=== PATIENT | female | born 1960 | race Caucasian/White ===

== ENCOUNTER 2023-06-20 09:38 | Outpatient (CLI) | payer OTHER, SELFPAY ==
--- NOTE | 2023-06-20 09:49 | ECG_ITS ---
Measurements Intervals [place] Rate: 72 P: 61 DC: 130 QRS: 33 QRSD: 101 T: 58 QT: 400 QTc: 440 Interpretive Statements SINUS RHYTHM DELAYED PRECORDIAL R/S TRANSITION BASELINE ARTIFACT- I, II, III, AVR, AVL, AVF, V1 BORDERLINE ECG NO PREVIOUS ECG AVAILABLE FOR COMPARISON Electronically Signed On 06-20-2023 10:18:18 FLAMER AFTER LASTING by Miguelito Lenz D.O.
[2023-06-20 10:26] LABS: Hematocrit 40.8 % (37.0-47.0); Hemoglobin 13.3 g/dL (12.0-15.0)
== END 2023-06-20 09:39 | disposition home or self-care (01) ==
LOC: ANHSURGERY 09:44
PROVIDERS: Anesthesiology; Visit Provider Surgery Plastic and Reconstructive Surgery
DX: Z01.818 Encounter for other preprocedural examination (principal); I10 Essential (primary) hypertension; R93.1 Abnormal findings on diagnostic imaging of heart and coronary circulation; Z41.1 Encounter for cosmetic surgery
CPT/HCPCS: 36415; 85014; 85018; 93005

== ENCOUNTER 2023-06-27 00:02 | Day surgery (SDC) | payer OTHER, SELFPAY ==
[2023-06-19 12:51] VITALS: BMI 30.7
--- NOTE | 2023-06-19 13:02 | PC.NURSE ---
Report to the Outpatient Waiting Room, entrance under the green pavilion located off [facility], at time 7:00 on date 06/27/23. Planned Procedure Time: 9:00. Time changes happen often and if your time is changed the preop area will call you the afternoon before. - You and your visitor will be asked to self-screen and do not enter if you have any COVID symptoms. - A mask is optional within the hospital at this time. Patients may have clear liquids (water, carbonated beverages, clear teas, apple juice) until 3 hours prior to surgery (6:00) with a maximum of 20 ounces. - No food from midnight until time of surgery Take the following medications with a SIP of water the morning of surgery: AMLODIPINE, CITALOPRAM, LEVOTHYROXINE DO NOT STOP ANY OF YOUR OTHER PRESCRIPTION MEDICATIONS PRIOR TO SURGERY ?EXCEPT THE FOLLOWING Medications to discontinue per physician: ASPIRIN Date to take last dose: HAS ALREADY STOPPED PT ENCOURAGED TO CALL DR. RIZVI'S OFFICE FOR INSTRUCTIONS REGARDING HYDROXYCHLOROQUINE Please no make-up, nail kyrgyz, hairspray, perfume, deodorant, or body powder the day of surgery. No jewelry (including any body piercings) or valuables the day of surgery, leave them at home. Please take a shower or bath the night before, or the morning of, surgery with an antibacterial soap. Wear comfortable, loose fitting clothing. - Jewelry must be removed prior to entering the operating room. Rings and piercings that are not removed may be cut off. - The hospital will not accept responsibility for valuables. - Please leave all valuables, including medications, at home the day of surgery. If you are going home after surgery, a licensed limousine driver must drive you home. - NO public transportation without another adult if you receive anesthesia. - We recommend that an adult stay with you for 24 hours following discharge. - We also recommend that you do not drive, make important decision, drink alcoholic beverages, or take any drugs that were not prescribed by your health care provider for at least 24 hours after your discharge time. Follow any additional instructions given to you from your surgeon. If you or anyone in your household have experienced Covid symptoms in the past week, please notify your surgeon or the nurse liaison at the phone number below for possible testing. Telephone instructions given to PT - SAVANNAH THOMAS and asked if any additional questions and then verbalized understanding. Patient advised to call surgeon office or pre surgery nurse liaison [phone] if any additional questions.
--- NOTE | 2023-06-26 14:15 | P.PNAN_ITS ---
Anes - Initial Pre Proc Eval Procedure: Operation Date: 06/27/23 07:30 Proposed Procedures p Face and Neck Lift - Tha Goddard MD s Bilateral Upper Eyelid Blepharoplasty - Tha Goddard MD Date/Time: 06/26/23 14:15 Surgeon: Tha Goddard MD Pre Op Diagnosis: skin laxity Patient Data Age: 63 Gender: F Height: 1.57 m Weight: 76.2 kg Allergies Allergy/AdvReac Type Severity Reaction Status Date / Time lisinopril Allergy Unknown Redness of Verified 06/27/23 07:20 Skin Home Medications Medication Instructions Recorded Confirmed Type amlodipine 5 mg tablet 5 mg PO DAILY 11/25/19 06/19/23 History citalopram 20 mg tablet 20 mg PO DAILY 11/25/19 06/19/23 History levothyroxine 25 mcg tablet 25 mcg PO DAILY 11/25/19 06/27/23 History pravastatin 10 mg tablet 10 mg PO DAILY 11/25/19 06/19/23 History aspirin 81 mg chewable tablet 81 mg PO DAILY 06/19/23 06/19/23 History hydroxychloroquine 200 mg tablet 200 mg PO BID 06/19/23 06/19/23 History losartan 50 mg tablet 50 mg PO DAILY 06/19/23 06/19/23 History Patient hx anesthesia problems: none Family hx anesthesia problems: none Results Review: All pre-operative results and documents have been reviewed as part of the pre- operative evaluation. [facility] Past Medical History Medical History (Updated 03/10/21 @ 13:39 by Tha Goddard MD) Breast tumor Depression High cholesterol History of vaginal delivery x 2 Hypertension Surgical History Surgical History History of endometrial ablation [place] teeth removed Family History Family History Mother Hypertension High cholesterol Grandparent Acute myocardial infarction Father Acute myocardial infarction High cholesterol Other Family history of malignant neoplasm of breast in first degree relative Social History Social History Smoking status: Never smoker Second hand tobacco smoke exposure: No Alcohol intake: current Alcohol use details: 2/MONTH Substance use: never Substance use type: does not use Living arrangements: with family Spiritual care concerns: No Anes - Eval Final PreProcedure Day of Procedure 06/26/23 14:15 Patient weight: obese Heart: regular rate and rhythm Lungs: clear to auscultation Airway: Mallampati scale class II Neurological: alert and oriented Last oral intake: >/= 8 hours ASA classification: III Emergent: no Anesthetic plan: proceed Anesthesia type and monitoring: general ETT and standard monitoring Results Review: All pre-operative results and documents have been reviewed as part of the pre- operative evaluation. Informed Consent: The patient's anesthetic plan and its attendant risks and benefits were discussed with the patient/family/POA. Questions were solicited and answers provided to the satisfaction of the patient/family/POA.
[2023-06-27] VITALS (11 sets, daily range): BP systolic 116–131; BP diastolic 75–85; PULSE 89–116; RESP 9–16; TEMP 36.1–36.6; O2SAT 96–100
[2023-06-27 06:37] LABS: Urine Cotinine NEGATIVE
[2023-06-27] MEDS: LACTATED RINGERS 1,000 ML 30 ML IV CONT ×3 (06:45→15:24)
[2023-06-27] MEDS: TRANEXAMIC ACID 1,000MG/ISO100 1,000 MG/100 ML BAG 200 MG IVPB (07:15)
--- NOTE | 2023-06-27 07:24 | WPDHPUPDATE1 ---
History and Physical Update Update Date/Time: 06/27/23 07:24 History and Physical has been reviewed, including an updated exam of the patient. There are NO changes in the patient's condition. Risks, benefits, and alternatives have been discussed and questions answered. Patient agrees to proceed with procedure.
--- NOTE | 2023-06-27 07:24 | W.PM.PROC2 ---
Procedure Note - Detailed Date of Procedure 06/27/23 Pre-op Diagnosis skin laxity Post-op Diagnosis Same Procedure Performed Bilateral upper lid blepharoplasty Face / neck lift Surgeon Tha Goddard MD Anesthesia General Description of Procedure Preoperatively risks, benefits, alternatives were discussed in extensive detail. I want them to be very realistic about the risks involved as well as expectations. Discussed what we can and cannot improved. Limitations of this procedure. Alternative procedure as well as adjuvant procedures. This was a lengthy open-ended conversation discussing realistic expectations of outcome. Answered all of their questions to their satisfaction. Consent obtained. Marked in the preoperative holding area. For the brow along the tarsal crease. A pinch test was completed to nat[place] the upper border and pinch test was utilized to verify no lagophthalmos after simulation of skin removal. Taken to the operating room placed supine on the operating room table. Anesthesia provided by anesthesiology. Prepped and draped in a standard sterile fashion. Blepharoplasty 1% lidocaine and 0.25% Marcaine with epinephrine was used anesthetize locally. A 15 blade was used to excise the skin flap. I thin incised the muscle and entered the nasal and middle compartments removing only what was clearly excess adiposity. I verified strict hemostasis throughout. This was closed with 5-0 fast absorbing plain gut suture. Patient was woken taken the PACU without difficulty. All instrument sponge counts were correct at the end the case. Face / neck Local anesthesia was provided with a tumescent solution using lidocaine, epinephrine, and TXA. Once adequate time for effect a fifteen blade used to make a submental incision. Dissection was continued down identified platysma muscle. Elevated skin flaps with good adiposity of the deep surface throughout the neck. I then went sub platysmal and elevated bilateral. Bilateral submandibular glands were ptotic and exposed at inferior medial aspect. Redundant superficial lobe resected with bovie electrocautery. No evidence of neurovascular injury with minimal bleeding. Minimal adipose removal was required and no digastric trimming completed. I completed platysmal transection at the midline at the level of the hyoid and repaired with 2-0 Vicryl. I then proceeded made the remainder of the incisions. I elevated skin flaps with good adequate adiposity of the deep surface to have good contour. A deep plane composite facelift was completed. I incised the SMAS laterally just posterior to a line from angle to lateral orbital rim. This was elevated with care taken to protect facial nerves and visually monitoring for muscle activity throughout. This was continued until bilateral flaps were tension free and retaining ligaments release. I then inset The composite SMAS flap with 2-0 Vicryl horizontal mattress which was oversewn with 4-0 Monocryl. I provided a backcut just below the level of the mandible and created a mastoid crevasse. Cautery was utilized to open along the anterior border the of the mastoid. 2-0 Ethibond sutures were used to secure this with two separate sutures per side. I irrigated with a Betadine wash. This was oversewn with 4-0 Monocryl. Copious irrigated with saline solution and verified strict hemostasis. The skin flaps were just placed into position without any tension. Trimmed as necessary. Preauricular was closed with 5-0 nylon. Postauricular with 5-0 chromic. I did stephanie in the hairline. Submental was closed using 3-0 Monocryl followed by running subcuticular 5-0 nylon. Hemostatic net was created with 3-0 nylon over all the undermined areas. Dressings were placed. Patient was awoken without difficulty. All instrument sponge counts were correct at the end of the case. Estimated Blood Loss 50 Drains No Packing No Pathology None sen
[2023-06-27] MEDS: LIDO 1%/EPINEPHRINE 1:100,000 50 ML VIAL 10 ML INFILTRATE (07:38)
[2023-06-27] MEDS: NEOMYCIN/POLYMYXIN/BACITRACIN OPHTH OINTMENT 3.5 GM TUBE 1 APPLIC EACH EYE (07:38)
[2023-06-27] MEDS: ceFAZolin 2 GM/D5W 50 ML 2 GM/50 ML BAG IVPB (07:38)
[2023-06-27] MEDS: TETRACAINE HCL 0.5% OPHTH SOLN 4 ML BTL 1 DROP EACH EYE (07:38)
[2023-06-27] MEDS: BACITRACIN OINTMENT 15 GM TUBE 1 APPLIC TOPICAL (07:38)
[2023-06-27] MEDS: BUPivacaine HCL 0.25% PF 30 ML VIAL INFILTRATE (07:38)
[2023-06-27] MEDS: fentaNYL CITRATE INJ (*CRX) 100 MCG/2 ML VIAL 25 MCG IV PUSH ×4 (14:20→14:26)
[2023-06-27] MEDS: oxyCODONE HCL (*CRX) 5 MG TAB IR PO (15:53)
[2023-06-27] MEDS: BALANCED SALT SOLN OPHTH IRRIG 30 ML BTL LEFT EYE (16:18)
== END 2023-06-27 16:52 | disposition home or self-care (01) ==
PROVIDERS: Visit Provider Surgery Plastic and Reconstructive Surgery
PROC: (CPT 15824; principal; 2023-06-27 07:30)
PROC: (CPT 15822; 2023-06-27 07:30)
DX: Z41.1 Encounter for cosmetic surgery (principal); L57.4 Cutis laxa senilis; I10 Essential (primary) hypertension; F32.A Depression, unspecified; E78.00 Pure hypercholesterolemia, unspecified; E07.9 Disorder of thyroid, unspecified; D89.89 Other specified disorders involving the immune mechanism, not elsewhere classified; I73.00 Raynaud's syndrome without gangrene; E66.9 Obesity, unspecified; Z68.29 Body mass index [BMI] 29.0-29.9, adult; Z79.82 Long term (current) use of aspirin; Z85.828 Personal history of other malignant neoplasm of skin; Z82.49 Family history of ischemic heart disease and other diseases of the circulatory system; Z80.3 Family history of malignant neoplasm of breast
CPT/HCPCS: 15822; 15825; 15829; 80307; A9270; J0171; J0690; J1100; J1170; J1200; J1580; J2250; J2371; J2405; J2704; J3010; J7030; J7120